=== PATIENT | female | born 1945 | race Caucasian/White ===

== ENCOUNTER 2022-08-30 11:51 | Emergency (ER) | payer MEDICARE ==
[~2022-08-30] VITALS: Ht 165.1 cm; Wt 90.7 kg
--- NOTE | 2022-08-30 12:02 | NUR ---
Placed in room 4 . Placed on monitoring engineer, blood pressure machine and pulse oximeter. To gown for exam. Side rails up. Report given to CRISTINE Renner.
--- NOTE | 2022-08-30 12:05 | NUR ---
RECEIVED PT FROM CRISTINE RANDOLPH. PT TRPUTI BLACKMAN FOR C/O MECH FALL, PT FELL BACKWARDS AND HIT TAILBONE. C/O PAIN 11/07. VSS. SIDERAILS UP X2.
--- NOTE | 2022-08-30 12:06 | NUR ---
DR. WATSON AT BEDSIDE TO ASSESS PT.
[2022-08-30 12:08] VITALS: BP_SYST 119
--- NOTE | 2022-08-30 12:48 | NUR ---
PT TAKEN FOR CT SCAN AT THIS TIME.
[2022-08-30] MEDS ORDERED: TRAM50TA2 PO (13:30)
[2022-08-30] MEDS ORDERED: IBUP-1969 PO (13:30)
[2022-08-30 13:40] VITALS: BP_SYST 131
--- NOTE | 2022-08-30 13:40 | NUR ---
Patient given written and verbal discharge instructions and verbalizes understanding. ER MD WATSON discussed with patient the results and treatment provided. Patient in stable condition. ID arm band removed. Rx of IBUPROFEN, TRAMADOL given. Patient educated on pain management, fall prevention and to follow up with PMD. Pain Scale 4/10. Opportunity for questions provided and answered. Medication side effect fact sheet provided.
== END 2022-08-30 13:40 | disposition home or self-care (01) ==
LOC: SED 11:51
DX: S13.4XXA Sprain of ligaments of cervical spine, initial encounter (principal); S33.5XXA Sprain of ligaments of lumbar spine, initial encounter; E11.9 Type 2 diabetes mellitus without complications; I10 Essential (primary) hypertension; E78.5 Hyperlipidemia, unspecified; Z88.8 Allergy status to other drugs, medicaments and biological substances; Z79.899 Other long term (current) drug therapy; W18.40XA Slipping, tripping and stumbling without falling, unspecified, initial encounter; Y93.89 Activity, other specified; Y92.89 Other specified places as the place of occurrence of the external cause; Y99.8 Other external cause status
CPT/HCPCS: 72125-TC; 72131; 72192-TC; 76376; 99284